=== PATIENT | female | born 1985 | race Caucasian/White ===

== ENCOUNTER 2018-01-19 10:58 | Emergency (ER) | payer MEDICAID ==
[2018-01-19 11:06] VITALS: BP 154/119
[2018-01-19] MEDS ORDERED: HYDROmorphone 0.5 MG/0.5 ML SYRINGE IVPUSH ONE ×2 (11:27→14:25)
[2018-01-19] MEDS ORDERED: Ondansetron 4 MG/2 ML SDV IVPUSH ONE ×2 (11:27→12:38)
[2018-01-19] MEDS ORDERED: Sodium Chloride 0.9% 1,000 ML IV SCH (11:30)
--- NOTE | 2018-01-19 11:39 | EDM.PDOC ---
ED HPI GENERAL MEDICAL PROBLEM - General Chief Complaint: Abdominal Pain Stated Complaint: ABDOMINAL PAIN/BACK PAIN/HARD TO BREATHE Time Seen by Provider: 01/19/18 11:17 Source of Information: Reports: Patient History Limitations: Reports: No Limitations - History of Present Illness INITIAL COMMENTS - FREE TEXT/NARRATIVE: Patient is a 32-year-old female who presents to the ED complaining of right upper quadrant abdominal pain that radiates into her back. This started last night abruptly with severe nausea. She has a poor appetite. States she's been drinking plenty of fluids with no issues. She has a history of gallbladder issues in the past diagnosed 2011. Ultrasound at that point did not reveal any gallstones present. HIDA scan was performed revealing a low ejection fraction. Due to patient's insurance they did not approve cholecystectomy. She's had no issues up until last night. States she did modify her diet for short period of time. As of recent she moved to [place] to take care of her grandmother. Patient ate pizza yesterday homemade with no concerns of ingestion of bad or questionable food. There has been no recent sick exposures. Denies being constipated. No fever, chest pain, shortness of breath, diarrhea, dysuria, or any additional complaints. Additional medical history includes hypertension take propranolol. Anxiety/depression/bipolar/PTSD taking Lipitor, clonazepam, lamotrigine. She is on estrogen replacement treatment. Patient did have a total hysterectomy. She smokes half pack per day. Alcohol use none. No recreational drug use. PCP is Roscoe Rai. Treatments IRRIGATION WORKER: Reports: Other (see below) Other Treatments IRRIGATION WORKER: pepto bismol Right Abdomen Pain Score (Numeric/FACES): 8 - Related Data Allergies Allergy/AdvReac Type Severity Reaction Status Date / Time morphine Allergy Cannot Verified 11/13/14 18:32 Remember Home Meds: Home Meds Drospirenone/Estradiol [Angeliq 0.5 mg-1 mg Tablet] 2 mg PO DAILY 06/26/14 [ History] lamoTRIgine [Lamictal] 25 mg PO DAILY 06/26/14 [History] ClonazePAM [KlonoPIN] 1 mg PO BID PRN 09/06/14 [History] Propranolol HCl 80 mg PO DAILY 11/13/14 [History] Acetaminophen/HYDROcodone [Anton 325-5 MG] 1 tab PO Q6H PRN #12 tablet 01/19/18 [Rx] Cholecalciferol (Vitamin D3) [Vitamin D3] 5,000 unit PO DAILY 01/19/18 [History] Cyanocobalamin (Vitamin B12) [Vitamin B12] 2,500 mcg PO DAILY 01/19/18 [History] Levofloxacin 750 mg PO QAM #6 tablet 01/19/18 [Rx] Ondansetron [Zofran ODT] 4 mg PO Q6H PRN #12 tab.dis 01/19/18 [Rx] buPROPion HCl [Wellbutrin Xl] 150 mg PO DAILY 01/19/18 [History] Past Medical History - Past Health History Medical/Surgical History: Denies Medical/Surgical History Cardiovascular History: Reports: Hypertension Neurological History: Reports: Migraines Psychiatric History: Reports: Anxiety, Bipolar, Depression, PTSD - Past Surgical History Female Surgical History: Reports: Hysterectomy Social & Family History - Tobacco Use Smoking Status *Q: Current Every Day Smoker Years of Tobacco use: 15 Packs/Tins Daily: 0.5 Used Tobacco, but Quit: Yes Month/Year Tobacco Last Used: Jun - Caffeine Use Caffeine Use: Reports: Tea - Alcohol Use Days Per Week of Alcohol Use: 0 - Recreational Drug Use Recreational Drug Use: No Drug Use in Last 12 Months: No ED ROS GENERAL - Review of Systems Review Of Systems: See Below Constitutional: Reports: Malaise, Decreased Appetite. Denies: Fever, Chills HEENT: Reports: No Symptoms Respiratory: Reports: No Symptoms Cardiovascular: Reports: No Symptoms GI/Abdominal: Reports: Abdominal Pain, Decreased Appetite, Nausea. Denies: Black Stool, Bloody Stool, Constipation, Diarrhea, Distension, Flatus, Hematemesis, Hematochezia, Vomiting : Reports: No Symptoms Musculoskeletal: Reports: Back Pain (low back) Skin: Reports: No Symptoms Neurological: Reports: No Symptoms ED EXAM, GI/ABD - Physical Exam Exam: See Below Exam Limited By: No Limitations General Appearance: Alert, WD/WN, No Apparent Distress Ears: Hearing Grossly Normal Nose: Normal Inspection Throat/Mouth: Normal Voice, No Airway Compromise Neck: Normal Inspection, Supple Respiratory/Chest: No Respiratory Distress, Lungs Clear, Normal Breath Sounds, No Accessory Muscle Use, Chest Non-Tender Cardiovascular: Normal Peripheral Pulses, Regular Rate, Rhythm GI/Abdominal Exam: Normal Bowel Sounds, Soft, No Organomegaly, No Distention, Other (Pain with palpation of the RUQ. +Pickard sign. -[place] pain. ) Back Exam: Normal Inspection. No: CVA Tenderness (L), CVA Tenderness (R) Extremities: Normal Inspection, Non-Tender, No Pedal Edema, Normal Capillary Refill Neurological: Alert, Oriented, CN II-XII Intact, Normal Cognition, No Motor/ Sensory Deficits Psychiatric: Normal Affect, Normal Mood Skin Exam: Warm, Dry, Intact, Normal Color, No Rash Course - Vital Signs Last Recorded V/S: Last Vital Signs Temp 98.2 F 01/19/18 11:04 Pulse 97 01/19/18 11:04 Resp 20 01/19/18 11:04 BP 154/119 H 01/19/18 11:04 Pulse Ox 100 01/19/18 11:04 - Orders/Labs/Meds Orders: Active Orders 24 hr Category Date Time Status EKG 12 Lead [EKG Documentation Completion] [RC] STAT Care 01/19/18 12:31 Active CULTURE URINE [RM] Stat Lab 01/19/18 11:45 Received DRUG SCREEN, URINE [URCHEM] Stat Lab 01/19/18 11:55 Ordered Labs: Laboratory Tests 01/19/18 01/19/18 01/19/18 Range/Units 11:15 11:15 11:55 WBC 9.83 (3.98-10.04) K/mm3 RBC 5.59 H (3.98-5.22) M/mm3 Hgb 14.6 (11.2-15.7) gm/L Hct 43.6 (34.1-44.9) % MCV 78.0 L (79.4-94.8) fl MCH 26.1 (25.6-32.2) pg MCHC 33.5 (32.2-35.5) g/dl RDW Std Deviation 40.6 (36.4-46.3) fL Plt Count 312 (182-369) K/mm3 MPV 10.1 (9.4-12.3) fl Neutrophils % (Manual) 85 H (40-60) % Band Neutrophils % 1 (0-10) % Lymphocytes % (Manual) 5 L (20-40) % Atypical Lymphs % 0 % Monocytes % (Manual) 6 (2-10) % Eosinophils % (Manual) 1 (0.7-5.8) % Basophils % (Manual) 0 L (0.1-1.2) Blast Cells % 2 Platelet Estimate Adequate RBC Morph Comment Normal Sodium 143 (136-145) mEq/L Potassium 3.9 (3.5-5.1) mEq/L Chloride 107 (98-107) mEq/L Carbon Dioxide 26 (21-32) mEq/L Anion Gap 13.9 (5-15) BUN 21 H (7-18) mg/dL Creatinine 1.1 H (0.55-1.02) mg/dL Est Cr Clr Drug Dosing 61.86 mL/min Estimated GFR (MDRD) 58 (>60) mL/min BUN/Creatinine Ratio 19.1 H (14-18) Glucose 131 H (74-106) mg/dL Calcium 9.3 (8.5-10.1) mg/dL Total Bilirubin 0.3 (0.2-1.0) mg/dL AST 21 (15-37) U/L ALT 30 (14-59) U/L Alkaline Phosphatase 105 (46-116) U/L C-Reactive Protein 1.1 H* (<1.0) mg/dL Total Protein 8.0 (6.4-8.2) g/dl Albumin 3.9 (3.4-5.0) g/dl Globulin 4.1 gm/dL Albumin/Globulin Ratio 1.0 (1-2) Lipase 91 (73-393) U/L Urine Color Yellow (Yellow) Urine Appearance Clear (Clear) Urine pH 6.0 (5.0-8.0) Ur Specific [place] 1.020 (1.005-1.030) Urine Protein 3+ H (Negative) Urine Glucose (UA) Negative (Negative) Urine Ketones Negative (Negative) Urine Occult Blood Trace-intact H (Negative) Urine Nitrite Negative (Negative) Urine Bilirubin Negative (Negative) Urine Urobilinogen 0.2 (0.2-1.0) Ur Leukocyte Esterase Negative (Negative) Urine RBC Not seen (0-5) /hpf Urine WBC 5-10 H (0-5) /hpf Ur Epithelial Cells 5-10 H (0-5) /hpf Urine Bacteria Rare (FEW) /hpf Urine Mucus Not seen (FEW) /hpf Urine HCG, Qual (NEGATIVE) Urine Opiates Screen (NEGATIVE) Ur Buprenorphine Scrn (NEGATIVE) Ur Oxycodone Screen (NEGATIVE) Urine Methadone Screen (NEGATIVE) Ur Propoxyphene Screen (NEGATIVE) Ur Barbiturates Screen (NEGATIVE) Ur Tricyclics Screen (NEGATIVE) Ur Phencyclidine Scrn (NEGATIVE) Ur Amphetamine Screen (NEGATIVE) U Methamphetamines Scrn (NEGATIVE) U Benzodiazepines Scrn (NEGATIVE) U Cocaine Metab Screen (NEGATIVE) U Marijuana (THC) Screen (NEGATIVE) 01/19/18 01/19/18 Range/Units 11:55 11:55 WBC (3.98-10.04) K/mm3 RBC (3.98-5.22) M/mm3 Hgb (11.2-15.7) gm/L Hct (34.1-44.9) % MCV (79.4-94.8) fl MCH (25.6-32.2) pg MCHC (32.2-35.5) g/dl RDW Std Deviation (36.4-46.3) fL Plt Count (182-369) K/mm3 MPV (9.4-12.3) fl Neutrophils % (Manual) (40-60) % Band Neutrophils % (0-10) % Lymphocytes % (Manual) (20-40) % Atypical Lymphs % % Monocytes % (Manual) (2-10) % Eosinophils % (Manual) (0.7-5.8) % Basophils % (Manual) (0.1-1.2) Blast Cells % Platelet Estimate RBC Morph Comment Sodium (136-145) mEq/L Potassium (3.5-5.1) mEq/L Chloride (98-107) mEq/L Carbon Dioxide (21-32) mEq/L Anion Gap (5-15) BUN (7-18) mg/dL Creatinine (0.55-1.02) mg/dL Est Cr Clr Drug Dosing mL/min Estimated GFR (MDRD) (>60) mL/min BUN/Creatinine Ratio (14-18) Glucose (74-106) mg/dL Calcium (8.5-10.1) mg/dL Total Bilirubin (0.2-1.0) mg/dL AST (15-37) U/L ALT (14-59) U/L Alkaline Phosphatase (46-116) U/L C-Reactive Protein (<1.0) mg/dL Total Protein (6.4-8.2) g/dl Albumin (3.4-5.0) g/dl Globulin gm/dL Albumin/Globulin Ratio (1-2) Lipase (73-393) U/L Urine Color (Yellow) Urine Appearance (Clear) Urine pH (5.0-8.0) Ur Specific [place] (1.005-1.030) Urine Protein (Negative) Urine Glucose (UA) (Negative) Urine Ketones (Negative) Urine Occult Blood (Negative) Urine Nitrite (Negative) Urine Bilirubin (Negative) Urine Urobilinogen (0.2-1.0) Ur Leukocyte Esterase (Negative) Urine RBC (0-5) /hpf Urine WBC (0-5) /hpf Ur Epithelial Cells (0-5) /hpf Urine Bacteria (FEW) /hpf Urine Mucus (FEW) /hpf Urine HCG, Qual Negative (NEGATIVE) Urine Opiates Screen Negative (NEGATIVE) Ur Buprenorphine Scrn Negative (NEGATIVE) Ur Oxycodone Screen Negative (NEGATIVE) Urine Methadone Screen Negative (NEGATIVE) Ur Propoxyphene Screen Negative (NEGATIVE) Ur Barbiturates Screen Negative (NEGATIVE) Ur Tricyclics Screen Negative (NEGATIVE) Ur Phencyclidine Scrn Negative (NEGATIVE) Ur Amphetamine Screen Negative (NEGATIVE) U Methamphetamines Scrn Negative (NEGATIVE) U Benzodiazepines Scrn Negative (NEGATIVE) U Cocaine Metab Screen Negative (NEGATIVE) U Marijuana (THC) Screen Presumptive positive H (NEGATIVE) Meds: Medications Discontinued Medications Generic Name Dose Route Start Last Admin Trade Name Freq PRN Reason Stop Dose Admin Diatrizoate Meglum/Diatrizoate Sod 90 ml 01/19/18 14:00 01/19/18 14:57 Gastrografin 37% PO 01/19/18 14:01 90 ml ONETIME ONE Administration Diphenhydramine HCl 50 mg 01/19/18 13:37 01/19/18 13:48 Benadryl IVPUSH 01/19/18 13:38 50 mg ONETIME ONE Administration Hydromorphone HCl 0.5 mg 01/19/18 11:27 01/19/18 11:52 Dilaudid IVPUSH 01/19/18 11:28 0.5 mg ONETIME ONE Administration Hydromorphone HCl 0.5 mg 01/19/18 14:25 01/19/18 14:34 Dilaudid IVPUSH 01/19/18 14:26 0.5 mg ONETIME ONE Administration Hyoscyamine 0.125 mg 01/19/18 12:39 01/19/18 12:49 Hyomax-Sl SL 01/19/18 12:40 0.125 mg ONETIME ONE Administration Sodium Chloride 1,000 mls @ 250 mls/hr 01/19/18 11:30 01/19/18 11:52 Normal Saline IV 250 mls/hr ASDIRECTED BLAINE Administration Iopamidol 100 ml 01/19/18 14:00 01/19/18 14:58 Isovue-370 (76%) IVPUSH 01/19/18 14:01 100 ml ONETIME ONE Administration Levofloxacin 750 mg 01/19/18 16:09 01/19/18 16:28 Levaquin PO 01/19/18 16:10 750 mg ONETIME ONE Administration Metoclopramide HCl 5 mg 01/19/18 14:25 01/19/18 14:32 Reglan IVPUSH 01/19/18 14:26 5 mg ONETIME ONE Administration Ondansetron HCl 4 mg 01/19/18 11:27 01/19/18 11:52 Zofran IVPUSH 01/19/18 11:28 4 mg ONETIME ONE Administration Ondansetron HCl 4 mg 01/19/18 12:38 01/19/18 12:50 Zofran IVPUSH 01/19/18 12:39 4 mg ONETIME ONE Administration Sodium Chloride 10 ml 01/19/18 14:00 01/19/18 14:58 Saline Flush FLUSH 01/19/18 14:01 10 ml ONETIME ONE Administration - Re-Assessments/Exams Free Text/Narrative Re-Assessment/Exam: IV established with Dilaudid 0.5 mg IVP, Zofran 4 mg IVP, and normal saline 250 mL/h. Initial labs and studies include: CBC, chem 14, CRP, urine drug tox, lipase, UA, , abdomen 2 view flat and upright, and ultrasound abdomen limited right upper quadrant pain. Reviewed HIDA scan obtained December 07, 2011 impression: Normal. Reviewed ultrasound abdomen obtained November 24, 2011 impression: Mild hepatomegaly with suggestion of mild fatty infiltration of the liver. Otherwise unremarkable. Reviewed ultrasound abd impression: Mild hepatomegaly a, small mid pole left renal cyst. No gallbladder outer malady. This was obtained January 10, 2006. 01/19/18 12:36 X-ray of the abdomen 2 view flat and upright: Nonspecific air in stool pattern. Patient does have a opacity to the right upper quadrant with unclear significance. She does have a history of hypercalcemia. Labs reviewed: WBC 9.83, Hgb 14.6, MCV low 78.0 (no documented workup), platelet count 312. Electrolytes WNL. BUN 21 and Cr 1.1. Glucose 131 ( nonfasting). CRP mildly elevated 1.1. Lipase 91. UA revealed 3+ protein, occult blood trace (no menses), urine WBC 5-10, and UR epithelia cells 5-10. Appears to be contaminated. Patient has no history of kidney stones. Pain is improved with sitting forward. Thus ordered EKG to evaluate for pericarditis. Urine drug tox positive for marijuana. Patient reported no recreational drug use. EKG: Sinus rhythm with q wave to lead III. No acute findings noted. 01/19/18 12:39 Per nursing staff patient complains of mild nausea and pain.Ordered levsin SL and zofran 4mg IVP. Ultrasound abdominal impression: Less than optimal study as described above. No discrete abnormality is otherwise seen. 1335 Discussed results of the labs and ultrasound with patient. She continues to have pain to the periumbilical region along with RUQ and back. She has no history of kidney stones. I will obtain CT abdomen/pelvis with IV and oral contrast. Patient requests benadryl with family history of allergic reaction to iv contrast. Ordered benadry 50mg PO. 01/19/18 14:26 Patient complaining of pain. Ordered dilaudid 0.5mg IVP and reglan 5mg IVP. 01/19/18 15:54 CT abdomen/pelvis Impression: Inflammatory change around both kidneys raising the possibility of pyelonephritis. Please correlate if this matches patients clinical symptoms. Incidental 2.3 cm cyst within the left kidney. No additional abnormality is identified on CT study of the abdomen and pelvis. 1555 Per nursing staff patient is up to the bathroom with no issues.Feeling much better after the reglan. 01/19/18 16:10 Discussed patient with suggested treating for Pyelnephritis. Ordered levofloxacin 750mg PO. Discharge home with instructions as documented. Departure - Departure Time of Disposition: 16:11 Disposition: Home, Self-Care 01 Condition: Good Clinical Impression: Pyelonephritis - Discharge Information Prescriptions: Acetaminophen/HYDROcodone [Anton 325-5 MG] 1 tab PO Q6H PRN #12 tablet PRN Reason: Pain (Severe 7-10) Levofloxacin 750 mg PO QAM #6 tablet Ondansetron [Zofran ODT] 4 mg PO Q6H PRN #12 tab.dis PRN Reason: Nausea/Vomiting Instructions: Pyelonephritis, Adult, Nausea and Vomiting, Adult, [id number], Pain Medicine Instructions, [id number] Referrals: Becki Rai SPLUNK DEVELOPER [Primary Care Provider] - Forms: ED Department Discharge Additional Instructions: Take the levofloxacin as prescribed. Push the fluids. Take zofran 4mg 1 tab every 6hrs as needed for nausea/vomiting. For pain can utilize aleve 1-2 tabs twice daily and tylenol 650mg every 6hrs. For severe pain take norco 1 tab every 6 hrs do not take tylenol and norco together. No driving today and or while taking the norco. Followup with PCP this coming Monday/Monday for reevaluation. Return to the E.D. if you develop any new or worsening symptoms as discussed. - My Orders Last 24 Hours: My Active Orders 01/19/18 11:45 CULTURE URINE [RM] Stat 01/19/18 11:55 DRUG SCREEN, URINE [URCHEM] Stat 01/19/18 12:31 EKG 12 Lead [EKG Documentation Completion] [RC] STAT - Assessment/Plan Last 24 Hours: My Active Orders 01/19/18 11:45 CULTURE URINE [RM] Stat 01/19/18 11:55 DRUG SCREEN, URINE [URCHEM] Stat 01/19/18 12:31 EKG 12 Lead [EKG Documentation Completion] [RC] STAT
[2018-01-19] MEDS ORDERED: Hyoscyamine 0.125 MG Tab.SL SL ONE (12:39)
--- NOTE | 2018-01-19 13:08 | CR ---
Abdomen: Supine and upright views of the abdomen were obtained. Comparison: No prior abdominal x-ray. Bowel gas pattern is felt to be within normal limits. Calcification is noted within the left side of the pelvis most likely representing phlebolith. No free air is seen. No discrete soft tissue abnormality is seen. Bony structures are within normal limits for the patient's age. Impression: 1. Nothing acute is seen on two-view abdominal x-ray. Diagnostic code #1
--- NOTE | 2018-01-19 13:08 | US ---
Limited abdominal ultrasound: Multiple real-time images of the upper right abdomen were obtained. Comparison: No previous abdominal ultrasound or CT exam. Technologist's note: Suboptimal images due to patient body habitus Liver not optimally seen. No discrete abnormality is noted within the liver. Gallbladder contains no gallstones. No gallbladder wall thickening or biliary duct dilatation is seen. Right kidney shows no hydronephrosis or mass. Right kidney measures 12.0 cm in size. Pancreas is obscured from bowel gas. Inferior vena cava not well seen, portal vein shows normal hepatopedal flow. Impression: 1. Less than optimal study as described above. No discrete abnormality is otherwise seen. Diagnostic code #1
[2018-01-19] MEDS ORDERED: diphenhydrAMINE 50 MG/ML SDV IVPUSH ONE (13:37)
[2018-01-19] MEDS ORDERED: Diatrizoate Meglumine/Diatrizoate Sodium 37% 120 ML Bottle PO ONE (14:00)
[2018-01-19] MEDS ORDERED: Iopamidol 755 Mg/ML 100 ML Bottle IVPUSH ONE (14:00)
[2018-01-19] MEDS ORDERED: Sodium Chloride 0.9% 10 ML Syringe FLUSH ONE (14:00)
[2018-01-19] MEDS ORDERED: Metoclopramide 10 MG/2 ML SDV IVPUSH ONE (14:25)
--- NOTE | 2018-01-19 15:21 | CT ---
CT abdomen and pelvis Technique: Multiple axial sections were obtained from the top of the liver inferiorly through the pubic symphysis. Intravenous and oral contrast was utilized. Delayed images were also obtained from above the kidneys inferiorly through the bladder. Comparison: Previous abdominal ultrasound performed on the same day (12:26 PM). Findings: Visualized lung bases shows nothing acute. Liver shows no focal parenchymal abnormality. Spleen appears within normal limits. Adrenal glands show no nodule. Pancreas is within normal limits. Gallbladder contains no calcified gallstones. Cyst is identified within the left kidney measuring 2.3 cm. Inflammatory changes are seen around both kidneys, worse on the right side raising the possibility of pyelonephritis. Contrast excretion is seen into both ureters without evidence of ureteral obstruction. Contrast noted on delayed images within the bladder. Aorta shows no aneurysmal dilatation. No retroperitoneal adenopathy is seen. No pelvic mass or adenopathy is identified. Appendix appears to be present and appears normal in size. Bone window settings were reviewed which appears within normal limits for the patient's age. No free fluid is seen. No bowel dilatation is seen. Impression: 1. Inflammatory change around both kidneys raising the possibility of pyelonephritis. Please correlate if this matches patient's clinical symptoms. 2. Incidental 2.3 cm cyst within the left kidney. 3. No additional abnormality is identified on CT study of the abdomen and pelvis. Diagnostic code #3
[2018-01-19] MEDS ORDERED: Levofloxacin 750 MG Tab PO ONE (16:09)
== END 2018-01-19 16:33 | disposition home or self-care (01) ==
LOC: JD.ED 10:58
DX: N12 Tubulo-interstitial nephritis, not specified as acute or chronic (principal); N28.1 Cyst of kidney, acquired; I10 Essential (primary) hypertension; F41.9 Anxiety disorder, unspecified; F32.9 Major depressive disorder, single episode, unspecified; F17.210 Nicotine dependence, cigarettes, uncomplicated; Z88.5 Allergy status to narcotic agent; Z79.899 Other long term (current) drug therapy
CPT/HCPCS: 36415; 74019; 74177; 76705; 80053; 80306; 81001; 81025; 83690; 85025; 86140; 87086; 93005; 96361; 96374; 96375; 96376; 99285; A9270; J1170; J1200; J2405; J2765; J7040; J7050; Q9963; Q9967; 99284

== ENCOUNTER 2020-09-30 13:54 | Emergency (ER) | payer BC, MEDICAID ==
[2020-09-30] MEDS ORDERED: Sodium Chloride 0.9% 10 ML Syringe FLUSH PRN (14:46)
[2020-09-30] MEDS ORDERED: Sodium Chloride 0.9% 1,000 ML IV STA (14:46)
[2020-09-30] MEDS ORDERED: diphenhydrAMINE 50 MG/ML SDV IVPUSH ONE (14:48)
[2020-09-30] MEDS ORDERED: Ketorolac 30 MG/ML SDV IVPUSH ONE (14:48)
[2020-09-30] MEDS ORDERED: Metoclopramide 10 MG/2 ML SDV IVPUSH ONE (14:48)
--- NOTE | 2020-09-30 15:37 | EDM.PDOC ---
ED HPI GENERAL MEDICAL PROBLEM - General Chief Complaint: Gastrointestinal Problem Stated Complaint: MIGRAINE/DEHYDRATION Time Seen by Provider: 09/30/20 14:22 Source of Information: Reports: Patient History Limitations: Reports: No Limitations - History of Present Illness INITIAL COMMENTS - FREE TEXT/NARRATIVE: The patient presents with a migraine. This has been going on for a couple of days. She had a gastric sleeve placed a few months ago. She lost 60 pounds and is off some of her medications for hypertension and hypercholesterolemia. She has not been able to drink enough water at her new job at [employer] and that has lead to her headache. She has no numbness or weakness. She has no fever, chills, cough, congestion, runny nose chest pain, shortness of breath, nausea or vomiting. Onset: Gradual Duration: Day(s): Location: Reports: Head Quality: Reports: Ache Severity: Severe Improves with: Reports: None Worsens with: Reports: None Associated Symptoms: Reports: Headaches. Denies: Chest Pain, Cough, Fever/Chills, Nausea/Vomiting, Shortness of Breath Headache Pain Score (Numeric/FACES): 5 - Related Data Allergies Allergy/AdvReac Type Severity Reaction Status Date / Time morphine Allergy Cannot Verified 09/30/20 14:20 Remember ondansetron [From Zofran] AdvReac Headache Verified 09/30/20 16:16 Home Meds: Home Meds lamoTRIgine [Lamictal] 200 mg PO BID 06/26/14 [History] Cholecalciferol (Vitamin D3) [Vitamin D3] 5,000 unit PO DAILY 01/19/18 [History] Cyanocobalamin (Vitamin B12) [Vitamin B12] 2,500 mcg PO DAILY 01/19/18 [History] Biotin 5,000 mcg PO DAILY 09/30/20 [History] Calcium Citrate 200 mg PO DAILY 09/30/20 [History] FLUoxetine [PROzac] 80 mg PO DAILY 09/30/20 [History] LORazepam [Ativan] 1 tab PO ASDIRECTED PRN 09/30/20 [History] Pedi Multivit No.7/Folic Acid [Flintstones Tab] 1 tab PO DAILY 09/30/20 [History] Rizatriptan Benzoate [Rizatriptan] 10 mg SL DAILY 09/30/20 [History] Past Medical History - Past Health History Medical/Surgical History: Denies Medical/Surgical History HEENT History: Reports: Impaired Vision Cardiovascular History: Reports: Hypertension Respiratory History: Reports: Sleep Apnea Other Respiratory History: off CPAP since surgery Gastrointestinal History: Reports: Other (See Below) Other Gastrointestinal History: Gastric Sleeve 06/09/20 Genitourinary History: Reports: UTI, Recurrent [employer]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 Musculoskeletal History: Reports: None Neurological History: Reports: Migraines Psychiatric History: Reports: Anxiety, Bipolar, Depression, PTSD Endocrine/Metabolic History: Reports: Obesity/BMI 30+ Hematologic History: Reports: None Immunologic History: Reports: None Oncologic (Cancer) History: Reports: None Dermatologic History: Reports: None - Infectious Disease History Infectious Disease History: Reports: Chicken Pox - Past Surgical History Head Surgeries/Procedures: Reports: None HEENT Surgical History: Reports: Oral Surgery GI Surgical History: Reports: Bariatric Procedure Other GI Surgeries/Procedures: sleeve Female Surgical History: Reports: Hysterectomy Musculoskeletal Surgical History: Reports: None Social & Family History - Family History Family Medical History: No Pertinent Family History Cardiac: Reports: Heart Failure Endocrine/Metabolic: Reports: Diabetes, type II Hematologic: Reports: Anemia - Tobacco Use Tobacco Use Status *Q: Former Tobacco User Used Tobacco, but Quit: Yes Month/Year Tobacco Last Used: 10/2009 - Caffeine Use Caffeine Use: Reports: None - Recreational Drug Use Recreational Drug Use: No ED ROS GENERAL - Review of Systems Review Of Systems: See Below Constitutional: Reports: No Symptoms HEENT: Reports: No Symptoms Respiratory: Reports: No Symptoms Cardiovascular: Reports: No Symptoms Endocrine: Reports: No Symptoms GI/Abdominal: Reports: No Symptoms : Reports: No Symptoms Musculoskeletal: Reports: No Symptoms Neurological: Reports: Headache ED EXAM, GI/ABD - Physical Exam Exam: See Below Exam Limited By: No Limitations General Appearance: Alert, No Apparent Distress Ears: Normal External Exam Nose: Normal Inspection Head: Atraumatic, Normocephalic Neck: Normal Inspection Respiratory/Chest: No Respiratory Distress, Lungs Clear, Normal Breath Sounds Cardiovascular: Regular Rate, Rhythm, No Edema, No Murmur GI/Abdominal Exam: Soft, Non-Tender, No Organomegaly, No Mass Extremities: Normal Inspection Course - Vital Signs Last Recorded V/S: Last Vital Signs Temp 97.3 F 09/30/20 14:32 Pulse 70 09/30/20 14:32 Resp 18 09/30/20 14:32 BP 122/92 H 09/30/20 14:32 Pulse Ox 97 09/30/20 14:32 - Orders/Labs/Meds Orders: Active Orders 24 hr Category Date Time Status Peripheral IV Care [RC] . DIRECTED Care 09/30/20 14:47 Active Sodium Chloride 0.9% [Saline Flush] Med 09/30/20 14:46 Active 10 ml FLUSH ASDIRECTED PRN Peripheral IV Insertion Adult [OM.PC] Stat Oth 09/30/20 14:46 Ordered Medication Orders Sodium Chloride (Saline Flush) 10 ml FLUSH ASDIRECTED PRN PRN Reason: Keep Vein Open Last Admin: 09/30/20 15:10 Dose: 10 ml Documented by: MODE Labs: Laboratory Tests 09/30/20 09/30/20 Range/Units 15:07 15:07 WBC 5.67 (3.98-10.04) K/mm3 RBC 5.25 H (3.98-5.22) M/mm3 Hgb 14.3 (11.2-15.7) gm/dl Hct 44.3 (34.1-44.9) % MCV 84.4 D (79.4-94.8) fl MCH 27.2 (25.6-32.2) pg MCHC 32.3 (32.2-35.5) g/dl RDW Std Deviation 45.4 (36.4-46.3) fL Plt Count 344 (182-369) K/mm3 MPV 9.5 (9.4-12.3) fl Neut % (Auto) 56.6 (34.0-71.1) % Lymph % (Auto) 31.0 (19.3-51.7) % Calvert % (Auto) 10.6 (4.7-12.5) % Eos % (Auto) 1.4 (0.7-5.8) Baso % (Auto) 0.4 (0.1-1.2) % Neut # (Auto) 3.21 (1.56-6.13) K/mm3 Lymph # (Auto) 1.76 (1.18-3.74) K/mm3 Calvert # (Auto) 0.60 H (0.24-0.36) K/mm3 Eos # (Auto) 0.08 (0.04-0.36) K/mm3 Baso # (Auto) 0.02 (0.01-0.08) K/mm3 Sodium 137 (136-145) mEq/L Potassium 3.9 (3.5-5.1) mEq/L Chloride 104 (98-107) mEq/L Carbon Dioxide 27 (21-32) mEq/L Anion Gap 9.9 (5-15) BUN 14 (7-18) mg/dL Creatinine 0.7 (0.55-1.02) mg/dL Est Cr Clr Drug Dosing 98.71 mL/min Estimated GFR (MDRD) > 60 (>60) mL/min BUN/Creatinine Ratio 20.0 H (14-18) Glucose 84 (74-106) mg/dL Calcium 8.8 (8.5-10.1) mg/dL Magnesium 2.0 (1.8-2.4) mg/dl Total Bilirubin 0.3 (0.2-1.0) mg/dL AST 14 L (15-37) U/L ALT 28 (14-59) U/L Alkaline Phosphatase 86 (46-116) U/L Total Protein 7.2 (6.4-8.2) g/dl Albumin 3.4 (3.4-5.0) g/dl Globulin 3.8 gm/dL Albumin/Globulin Ratio 0.9 L (1-2) Meds: Medications Generic Name Dose Route Start Last Admin Trade Name Freq PRN Reason Stop Dose Admin Sodium Chloride 10 ml 09/30/20 14:46 09/30/20 15:10 Saline Flush FLUSH 10 ml ASDIRECTED PRN Administration Keep Vein Open Discontinued Medications Generic Name Dose Route Start Last Admin Trade Name Freq PRN Reason Stop Dose Admin Diphenhydramine HCl 50 mg 09/30/20 14:48 09/30/20 15:18 Benadryl IVPUSH 09/30/20 14:49 50 mg ONETIME ONE Administration Sodium Chloride 1,000 mls @ 1,000 mls/hr 09/30/20 14:46 09/30/20 15:17 Normal Saline IV 09/30/20 15:45 1,000 mls/hr .BOLUS STA Administration Sodium Chloride 1,000 mls @ 1,000 mls/hr 09/30/20 15:38 Normal Saline IV 09/30/20 16:37 ONETIME ONE Ketorolac Tromethamine 30 mg 09/30/20 14:48 09/30/20 15:18 Toradol IVPUSH 09/30/20 14:49 30 mg ONETIME ONE Administration Metoclopramide HCl 10 mg 09/30/20 14:48 09/30/20 15:18 Reglan IVPUSH 09/30/20 14:49 10 mg ONETIME ONE Administration - Re-Assessments/Exams Free Text/Narrative Re-Assessment/Exam: 09/30/20 15:37 I ordered an IV NS 1L bolus, reglan 10mg IV, toradol 30mg IV, benadryl 50mg IV and labs. 09/30/20 16:17 Her CBC and CMP look good. She feels much better. I will discharge her home. Departure - Departure Time of Disposition: 16:20 Disposition: Home, Self-Care 01 Condition: Good Clinical Impression: Migraine, Dehydration - Discharge Information *PRESCRIPTION DRUG MONITORING PROGRAM REVIEWED*: Not Applicable *COPY OF PRESCRIPTION DRUG MONITORING REPORT IN PATIENT RACHAEL: Not Applicable Referrals: PCP,None [Primary Care Provider] - Forms: ED Department Discharge Additional Instructions: Try to drink more water. Please return if you are worse. Sepsis Event Note (ED) - Evaluation Sepsis Screening Result: No Definite Risk - Focused Exam Vital Signs: Vital Signs Temp Pulse Resp BP Pulse Ox 09/30/20 14:32 97.3 F 70 18 122/92 H 97 - My Orders Last 24 Hours: My Active Orders 09/30/20 14:46 Sodium Chloride 0.9% [Saline Flush] 10 ml FLUSH ASDIRECTED PRN Peripheral IV Insertion Adult [OM.PC] Stat 09/30/20 14:47 Peripheral IV Care [RC] . DIRECTED - Assessment/Plan Last 24 Hours: My Active Orders 09/30/20 14:46 Sodium Chloride 0.9% [Saline Flush] 10 ml FLUSH ASDIRECTED PRN Peripheral IV Insertion Adult [OM.PC] Stat 09/30/20 14:47 Peripheral IV Care [RC] . DIRECTED
[2020-09-30] MEDS ORDERED: Sodium Chloride 0.9% 1,000 ML IV ONE (15:38)
[2020-09-30 16:21] VITALS: BP 118/80; PULSE 76
== END 2020-09-30 16:32 | disposition home or self-care (01) ==
LOC: JD.ED 13:54
DX: G43.909 Migraine, unspecified, not intractable, without status migrainosus (principal); E86.0 Dehydration; I10 Essential (primary) hypertension; F31.9 Bipolar disorder, unspecified; F41.9 Anxiety disorder, unspecified; E66.9 Obesity, unspecified; Z68.39 Body mass index [BMI] 39.0-39.9, adult; Z88.5 Allergy status to narcotic agent; Z88.8 Allergy status to other drugs, medicaments and biological substances; Z87.891 Personal history of nicotine dependence; Z79.899 Other long term (current) drug therapy
CPT/HCPCS: 36415; 80053; 83735; 85025; 96374; 96375; 99283; J1200; J1885; J2765; J7030; 99284

== ENCOUNTER 2021-06-02 09:33 | Emergency (ER) | payer BC, OTHER ==
[2021-06-02 09:46] VITALS: BP 141/99; PULSE 80
[2021-06-02] MEDS ORDERED: Sodium Chloride 0.9% 1,000 ML IV ONE (09:58)
[2021-06-02] MEDS ORDERED: Sodium Chloride 0.9% 10 ML Syringe FLUSH PRN (09:58)
[2021-06-02] MEDS ORDERED: Ketorolac 30 MG/ML SDV IVPUSH ONE (09:58)
[2021-06-02] MEDS ORDERED: Famotidine 20 MG/2 ML SDV IVPUSH ONE (09:59)
[2021-06-02] MEDS ORDERED: Metoclopramide 10 MG/2 ML SDV IVPUSH ONE (09:59)
[2021-06-02] MEDS ORDERED: diphenhydrAMINE 50 MG/ML SDV IVPUSH ONE (09:59)
--- NOTE | 2021-06-02 10:10 | EDM.PDOC ---
ED HPI GENERAL MEDICAL PROBLEM - General Chief Complaint: Headache Stated Complaint: HEADACHE Time Seen by Provider: 06/02/21 09:48 Source of Information: Reports: Patient History Limitations: Reports: No Limitations - History of Present Illness INITIAL COMMENTS - FREE TEXT/NARRATIVE: The patient presents with a headache. This started on Monday. She has pain in the back of her head. She has nausea and photophobia. She has a history of migraines. They have been better since she had her gastric sleeve done about a year ago. She lost 115 pounds. She has no numbness or weakness. She has no fever, chills, cough, chest pain, shortness of breath, or vomiting. Onset: Gradual Duration: Day(s): Location: Reports: Head Quality: Reports: Ache Severity: Severe Improves with: Reports: None Worsens with: Reports: None Associated Symptoms: Reports: Headaches, Nausea/Vomiting, Shortness of Breath. Denies: Chest Pain, Cough, Fever/Chills Headache Pain Score (Numeric/FACES): 6 - Related Data Allergies Allergy/AdvReac Type Severity Reaction Status Date / Time iodine Allergy Severe Hives Verified 06/02/21 09:45 morphine AdvReac Severe Headache Verified 06/02/21 09:45 ondansetron [From Zofran] AdvReac Severe Stomach Verified 06/02/21 09:45 Upset Home Meds: Home Meds lamoTRIgine [Lamictal] 200 mg PO BID 06/26/14 [History] Cholecalciferol (Vitamin D3) [Vitamin D3] 5,000 unit PO DAILY 01/19/18 [History] Cyanocobalamin (Vitamin B12) [Vitamin B12] 2,500 mcg PO DAILY 01/19/18 [History] Calcium Citrate 500 mg PO DAILY 09/30/20 [History] FLUoxetine [PROzac] 80 mg PO DAILY 09/30/20 [History] LORazepam [Ativan] 1 tab PO ASDIRECTED PRN 09/30/20 [History] Pedi Multivit No.7/Folic Acid [Flintstones Tab] 1 tab PO DAILY 09/30/20 [History] Rizatriptan Benzoate [Rizatriptan] 10 mg SL DAILY 09/30/20 [History] Magnesium 250 mg PO BEDTIME 06/02/21 [History] atorvaSTATin [Lipitor] 10 mg PO BEDTIME 06/02/21 [History] Past Medical History - Past Health History Medical/Surgical History: Denies Medical/Surgical History HEENT History: Reports: Impaired Vision Cardiovascular History: Reports: Hypertension Respiratory History: Reports: Sleep Apnea Other Respiratory History: off CPAP since surgery Gastrointestinal History: Reports: Other (See Below) Other Gastrointestinal History: Gastric Sleeve 06/09/20 Genitourinary History: Reports: UTI, 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 Musculoskeletal History: Reports: None Neurological History: Reports: Migraines Psychiatric History: Reports: Anxiety, Bipolar, Depression, PTSD Endocrine/Metabolic History: Reports: Obesity/BMI 30+ Hematologic History: Reports: None Immunologic History: Reports: None Oncologic (Cancer) History: Reports: None Dermatologic History: Reports: None - Infectious Disease History Infectious Disease History: Reports: Chicken Pox - Past Surgical History HEENT Surgical History: Reports: Oral Surgery GI Surgical History: Reports: Bariatric Procedure Other GI Surgeries/Procedures: sleeve Female Surgical History: Reports: Hysterectomy Social & Family History - Family History Family Medical History: No Pertinent Family History Cardiac: Reports: Heart Failure Endocrine/Metabolic: Reports: Diabetes, type II Hematologic: Reports: Anemia - Tobacco Use Tobacco Use Status *Q: Current Every Day Tobacco User Years of Tobacco use: 15 Packs/Tins Daily: 0.2 - Caffeine Use Caffeine Use: Reports: Coffee, Tea - Recreational Drug Use Recreational Drug Use: No ED ROS GENERAL - Review of Systems Review Of Systems: See Below Constitutional: Reports: No Symptoms HEENT: Reports: No Symptoms Respiratory: Reports: No Symptoms Cardiovascular: Reports: No Symptoms Endocrine: Reports: No Symptoms GI/Abdominal: Reports: Nausea. Denies: Abdominal Pain, Vomiting Neurological: Reports: Headache - Physical Exam Exam: See Below Exam Limited By: No Limitations General Appearance: Alert, No Apparent Distress Ears: Normal External Exam Nose: Normal Inspection Head Exam: Atraumatic, Normocephalic Neck: Normal Inspection, Supple, Non-Tender Respiratory/Chest: No Respiratory Distress, Lungs Clear, Normal Breath Sounds Cardiovascular: Regular Rate, Rhythm, No Edema, No Murmur GI/Abdominal: Soft, Non-Tender, No Organomegaly, No Mass Neuro Exam (Abbreviated): Alert, Oriented, No Motor/Sensory Deficits Course - Vital Signs Last Recorded V/S: Last Vital Signs Temp 96.9 F 06/02/21 09:41 Pulse 80 06/02/21 09:41 Resp 16 06/02/21 09:41 BP 141/99 H 06/02/21 09:41 Pulse Ox 97 06/02/21 09:41 - Orders/Labs/Meds Orders: Active Orders 24 hr Category Date Time Status Peripheral IV Care [RC] . DIRECTED Care 06/02/21 09:58 Active Sodium Chloride 0.9% [Saline Flush] Med 06/02/21 09:58 Active 10 ml FLUSH ASDIRECTED PRN Peripheral IV Insertion Adult [OM.PC] Routine Oth 06/02/21 09:58 Ordered Medication Orders Sodium Chloride (Sodium Chloride 0.9% 10 Ml Syringe) 10 ml FLUSH ASDIRECTED PRN PRN Reason: Keep Vein Open Last Admin: 06/02/21 10:07 Dose: 10 ml Documented by: JUANA Meds: Medications Generic Name Dose Route Start Last Admin Trade Name Freq PRN Reason Stop Dose Admin Sodium Chloride 10 ml 06/02/21 09:58 06/02/21 10:07 Sodium Chloride 0.9% 10 Ml Syringe FLUSH 10 ml ASDIRECTED PRN Administration Keep Vein Open Discontinued Medications Generic Name Dose Route Start Last Admin Trade Name Freq PRN Reason Stop Dose Admin Diphenhydramine HCl 50 mg 06/02/21 09:59 06/02/21 10:13 Diphenhydramine 50 Mg/Ml Sdv IVPUSH 06/02/21 10:00 50 mg ONETIME ONE Administration Famotidine 20 mg 06/02/21 09:59 06/02/21 10:10 Famotidine 20 Mg/2 Ml Sdv IVPUSH 06/02/21 10:00 20 mg ONETIME ONE Administration Sodium Chloride 1,000 mls @ 1,000 mls/hr 06/02/21 09:58 06/02/21 10:07 Normal Saline IV 06/02/21 10:57 1,000 mls/hr ONETIME ONE Administration Ketorolac Tromethamine 30 mg 06/02/21 09:58 06/02/21 10:07 Ketorolac 30 Mg/Ml Sdv IVPUSH 06/02/21 09:59 30 mg ONETIME ONE Administration Metoclopramide HCl 10 mg 06/02/21 09:59 06/02/21 10:08 Metoclopramide 10 Mg/2 Ml Sdv IVPUSH 06/02/21 10:00 10 mg ONETIME ONE Administration - Re-Assessments/Exams Free Text/Narrative Re-Assessment/Exam: 06/02/21 10:26 I ordered an IV NS 1L bolus, reglan 10mg IV, benadryl 50mg IV, pepcid 20mg IV, and toradol 30mg IV. 06/02/21 11:29 She feels better. I will discharge her home. Departure - Departure Time of Disposition: 11:35 Disposition: Home, Self-Care 01 Condition: Good Clinical Impression: Migraine - Discharge Information *PRESCRIPTION DRUG MONITORING PROGRAM REVIEWED*: Not Applicable *COPY OF PRESCRIPTION DRUG MONITORING REPORT IN PATIENT RACHAEL: Not Applicable Referrals: Huma Mulligan NP [Primary Care Provider] - 1 Week Forms: ED Department Discharge, ED Return to Work/School Form Additional Instructions: Go home and rest. Please return if you are worse. Sepsis Event Note (ED) - Evaluation Sepsis Screening Result: No Definite Risk - Focused Exam Vital Signs: Vital Signs Temp Pulse Resp BP Pulse Ox 06/02/21 09:41 96.9 F 80 16 141/99 H 97 - My Orders Last 24 Hours: My Active Orders 06/02/21 09:58 Peripheral IV Care [RC] . DIRECTED Sodium Chloride 0.9% [Saline Flush] 10 ml FLUSH ASDIRECTED PRN Peripheral IV Insertion Adult [OM.PC] Routine - Assessment/Plan Last 24 Hours: My Active Orders 06/02/21 09:58 Peripheral IV Care [RC] . DIRECTED Sodium Chloride 0.9% [Saline Flush] 10 ml FLUSH ASDIRECTED PRN Peripheral IV Insertion Adult [OM.PC] Routine
== END 2021-06-02 11:35 | disposition home or self-care (01) ==
LOC: JD.ED 09:33
DX: G43.909 Migraine, unspecified, not intractable, without status migrainosus (principal); I10 Essential (primary) hypertension; E66.9 Obesity, unspecified; Z91.041 Radiographic dye allergy status; Z88.6 Allergy status to analgesic agent; Z88.8 Allergy status to other drugs, medicaments and biological substances; Z68.31 Body mass index [BMI] 31.0-31.9, adult; Z72.0 Tobacco use; Z79.899 Other long term (current) drug therapy
CPT/HCPCS: 96374; 96375; 99283; J1200; J1885; J2765; J3490; J7030

== ENCOUNTER 2021-06-15 18:14 | Emergency (ER) | payer OTHER ==
[2021-06-15 19:04] VITALS: BP 137/99; PULSE 86
--- NOTE | 2021-06-15 20:05 | EDM.PDOC ---
ED HPI GENERAL MEDICAL PROBLEM - General Chief Complaint: Abdominal Pain Stated Complaint: SOB CHEST PAIN Time Seen by Provider: 06/15/21 19:31 Source of Information: Reports: Patient History Limitations: Reports: No Limitations - History of Present Illness INITIAL COMMENTS - FREE TEXT/NARRATIVE: 36-year-old female presents the emergency department with complaints of upper abdominal discomfort radiating like a band around her back. Patient states she does have a history of gastric sleeve and was told that she may have gallbladder issues after having this procedure. She states she did have some issues prior to the procedure but has been doing fine. However over the course the past 2 days she states she has developed right upper quadrant abdominal pain which radiates around her abdomen and around her back. She states it feels like there is a belt going around her upper abdomen. She states that nothing makes the pain worse or better however it has become more severe throughout the day. She has not been able to eat or drink much of anything due to the discomfort. She denies any fever, chills, nausea, vomiting or diarrhea. She denies headache, sore throat, cough or shortness of breath or any other respiratory symptoms. She states she has otherwise been fairly healthy. Treatments PETROLEUM SAMPLER: Reports: Other (see below) Other Treatments PETROLEUM SAMPLER: pepcid and pepto Right Upper Abdomen Pain Score (Numeric/FACES): 6 - Related Data Allergies Allergy/AdvReac Type Severity Reaction Status Date / Time iodine Allergy Severe Hives Verified 06/15/21 18:58 morphine AdvReac Severe Headache Verified 06/15/21 18:58 ondansetron [From Zofran] AdvReac Severe Stomach Verified 06/15/21 18:58 Upset Home Meds: Home Meds lamoTRIgine [Lamictal] 200 mg PO BID 06/26/14 [History] Cholecalciferol (Vitamin D3) [Vitamin D3] 5,000 unit PO DAILY 01/19/18 [History] Cyanocobalamin (Vitamin B12) [Vitamin B12] 2,500 mcg PO DAILY 01/19/18 [History] Calcium Citrate 500 mg PO DAILY 09/30/20 [History] FLUoxetine [PROzac] 80 mg PO DAILY 09/30/20 [History] Pedi Multivit No.7/Folic Acid [Flintstones Tab] 1 tab PO DAILY 09/30/20 [History] Rizatriptan Benzoate [Rizatriptan] 10 mg SL DAILY 09/30/20 [History] Magnesium 250 mg PO BEDTIME 06/02/21 [History] atorvaSTATin [Lipitor] 10 mg PO BEDTIME 06/02/21 [History] Past Medical History - Past Health History Medical/Surgical History: Denies Medical/Surgical History HEENT History: Reports: Impaired Vision Cardiovascular History: Reports: Hypertension Respiratory History: Reports: Sleep Apnea Other Respiratory History: off CPAP since surgery Gastrointestinal History: Reports: Other (See Below) Other Gastrointestinal History: Gastric Sleeve 06/09/20 Genitourinary History: Reports: UTI, Recurrent 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: 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 Musculoskeletal History: Reports: None Neurological History: Reports: Migraines Psychiatric History: Reports: Anxiety, Bipolar, Depression, PTSD Endocrine/Metabolic History: Reports: Obesity/BMI 30+ Hematologic History: Reports: None Immunologic History: Reports: None Oncologic (Cancer) History: Reports: None Dermatologic History: Reports: None - Infectious Disease History Infectious Disease History: Reports: Chicken Pox - Past Surgical History Head Surgeries/Procedures: Reports: None HEENT Surgical History: Reports: Oral Surgery GI Surgical History: Reports: Bariatric Procedure Other GI Surgeries/Procedures: sleeve Female Surgical History: Reports: Hysterectomy Musculoskeletal Surgical History: Reports: None Social & Family History - Family History Family Medical History: No Pertinent Family History Cardiac: Reports: Heart Failure Endocrine/Metabolic: Reports: Diabetes, type II Hematologic: Reports: Anemia - Tobacco Use Tobacco Use Status *Q: Current Some Day Tobacco User Years of Tobacco use: 15 Packs/Tins Daily: 0.5 - Caffeine Use Caffeine Use: Reports: Tea - Recreational Drug Use Recreational Drug Use: No ED ROS GENERAL - Review of Systems Review Of Systems: Comprehensive ROS is negative, except as noted in HPI. ED EXAM, GI/ABD - Physical Exam Exam: See Below Exam Limited By: No Limitations General Appearance: Alert, WD/WN, Mild Distress Ears: Normal External Exam, Hearing Grossly Normal Nose: Normal Inspection Throat/Mouth: Normal Inspection, Normal Lips, Normal Voice, No Airway Compromise Head: Atraumatic, Normocephalic Neck: Normal Inspection, Supple Respiratory/Chest: No Respiratory Distress, Lungs Clear, Normal Breath Sounds, No Accessory Muscle Use, Chest Non-Tender Cardiovascular: Normal Peripheral Pulses, Regular Rate, Rhythm, No Edema, No Murmur GI/Abdominal Exam: Normal Bowel Sounds, Soft, No Distention, Tender (Right and left upper quadrants) (Female) Exam: Deferred Rectal (Female) Exam: Deferred Back Exam: Normal Inspection Extremities: Normal Inspection Neurological: Alert, Oriented, Normal Cognition Psychiatric: Normal Affect Skin Exam: Warm, Dry, Intact, Normal Color, No Rash Lymphatic: No Adenopathy #1 Interpretation EKG Date: 06/15/21 Time: 19:30 Rhythm: NSR Rate (Beats/Min): 79 [place]: Normal P-Wave: Present QRS: LBBB ST-T: Normal QT: Normal Comparison: NA - No Prior EKG EKG Interpretation Comments: Per Dr. Esparza interpretation; sinus rhythm at 79 bpm; left bundle branch block Course - Vital Signs Text/Narrative:: As stated above patient presents with upper abdominal discomfort primarily in the right upper quadrant however however it does radiate across the upper abdomen. Patient's physical exam is essentially unremarkable however she does have tenderness noted at McBurney's point. She also states that pain radiates around her back. She denies any vomiting or diarrhea. She denies any fever chills or urinary symptoms. I have ordered labs to include a CBC, CMP, magnesium, C-reactive protein, lipase and GGT. We will also obtain an ultrasound of the right upper quadrant. Last Recorded V/S: Last Vital Signs Temp 97.2 F 06/15/21 19:01 Pulse 86 06/15/21 19:01 Resp 18 06/15/21 19:01 BP 137/99 H 06/15/21 19:01 Pulse Ox 99 06/15/21 19:01 - Orders/Labs/Meds Orders: Active Orders 24 hr Category Date Time Status Sodium Chloride 0.9% [Normal Saline] 1,000 ml Med 06/15/21 20:52 Active IV ONETIME Medication Orders Sodium Chloride (Normal Saline) 1,000 mls @ 999 mls/hr IV ONETIME ONE Stop: 06/15/21 21:52 Last Admin: 06/15/21 21:28 Dose: 999 mls/hr Documented by: BARBARA Labs: Laboratory Tests 06/15/21 06/15/21 06/15/21 Range/Units 19:35 19:35 19:35 WBC 5.13 (3.98-10.04) K/mm3 RBC 5.27 H (3.98-5.22) M/mm3 Hgb 15.1 (11.2-15.7) gm/dl Hct 45.4 H (34.1-44.9) % MCV 86.1 (79.4-94.8) fl MCH 28.7 (25.6-32.2) pg MCHC 33.3 (32.2-35.5) g/dl RDW Std Deviation 39.8 (36.4-46.3) fL Plt Count 354 (182-369) K/mm3 MPV 9.1 L (9.4-12.3) fl Neut % (Auto) 70.3 (34.0-71.1) % Lymph % (Auto) 20.1 (19.3-51.7) % [place] % (Auto) 8.0 (4.7-12.5) % Eos % (Auto) 1.0 (0.7-5.8) Baso % (Auto) 0.4 (0.1-1.2) % Neut # (Auto) 3.61 (1.56-6.13) K/mm3 Lymph # (Auto) 1.03 L (1.18-3.74) K/mm3 [place] # (Auto) 0.41 H (0.24-0.36) K/mm3 Eos # (Auto) 0.05 (0.04-0.36) K/mm3 Baso # (Auto) 0.02 (0.01-0.08) K/mm3 Sodium 138 (136-145) mEq/L Potassium 4.0 (3.5-5.1) mEq/L Chloride 103 (98-107) mEq/L Carbon Dioxide 28 (21-32) mEq/L Anion Gap 11.0 (5-15) BUN 13 (7-18) mg/dL Creatinine 0.8 (0.55-1.02) mg/dL Est Cr Clr Drug Dosing 81.97 mL/min Estimated GFR (MDRD) > 60 (>60) mL/min BUN/Creatinine Ratio 16.3 (14-18) Glucose 84 (70-99) mg/dL Calcium 8.8 (8.5-10.1) mg/dL Magnesium (1.8-2.4) mg/dL Total Bilirubin 0.5 (0.2-1.0) mg/dL GGT (5-55) U/L AST 719 H (15-37) U/L ALT 485 H (14-59) U/L Alkaline Phosphatase 171 H (46-116) U/L Troponin I < 0.017 (0.00-0.056) ng/mL Total Protein 7.7 (6.4-8.2) g/dl Albumin 3.8 (3.4-5.0) g/dl Globulin 3.9 gm/dL Albumin/Globulin Ratio 1.0 (1-2) Lipase 263 (73-393) U/L 06/15/21 Range/Units 19:35 WBC (3.98-10.04) K/mm3 RBC (3.98-5.22) M/mm3 Hgb (11.2-15.7) gm/dl Hct (34.1-44.9) % MCV (79.4-94.8) fl MCH (25.6-32.2) pg MCHC (32.2-35.5) g/dl RDW Std Deviation (36.4-46.3) fL Plt Count (182-369) K/mm3 MPV (9.4-12.3) fl Neut % (Auto) (34.0-71.1) % Lymph % (Auto) (19.3-51.7) % [place] % (Auto) (4.7-12.5) % Eos % (Auto) (0.7-5.8) Baso % (Auto) (0.1-1.2) % Neut # (Auto) (1.56-6.13) K/mm3 Lymph # (Auto) (1.18-3.74) K/mm3 [place] # (Auto) (0.24-0.36) K/mm3 Eos # (Auto) (0.04-0.36) K/mm3 Baso # (Auto) (0.01-0.08) K/mm3 Sodium (136-145) mEq/L Potassium (3.5-5.1) mEq/L Chloride (98-107) mEq/L Carbon Dioxide (21-32) mEq/L Anion Gap (5-15) BUN (7-18) mg/dL Creatinine (0.55-1.02) mg/dL Est Cr Clr Drug Dosing mL/min Estimated GFR (MDRD) (>60) mL/min BUN/Creatinine Ratio (14-18) Glucose (70-99) mg/dL Calcium (8.5-10.1) mg/dL Magnesium 2.2 (1.8-2.4) mg/dL Total Bilirubin (0.2-1.0) mg/dL GGT 216 H (5-55) U/L AST (15-37) U/L ALT (14-59) U/L Alkaline Phosphatase (46-116) U/L Troponin I (0.00-0.056) ng/mL Total Protein (6.4-8.2) g/dl Albumin (3.4-5.0) g/dl Globulin gm/dL Albumin/Globulin Ratio (1-2) Lipase (73-393) U/L Meds: Medications Generic Name Dose Route Start Last Admin Trade Name Freq PRN Reason Stop Dose Admin Sodium Chloride 1,000 mls @ 999 mls/hr 06/15/21 20:52 06/15/21 21:28 Normal Saline IV 06/15/21 21:52 999 mls/hr ONETIME ONE Administration Discontinued Medications Generic Name Dose Route Start Last Admin Trade Name Freq PRN Reason Stop Dose Admin Ketorolac Tromethamine 30 mg 06/15/21 20:52 06/15/21 21:28 Ketorolac 30 Mg/Ml Sdv IVPUSH 06/15/21 20:53 30 mg ONETIME ONE Administration Promethazine HCl 25 mg 06/15/21 20:39 06/15/21 20:50 Promethazine 25 Mg Tab PO 06/15/21 20:40 25 mg NOW STA Administration - Re-Assessments/Exams Free Text/Narrative Re-Assessment/Exam: 06/15/21 21:52 Hematology reveals a WBC of 5.13, hemoglobin 15.1, hematocrit 45.4, platelet count 354 Chemistry reveals a sodium of 138, potassium 4.0, carbon dioxide 28, anion gap 11.0, BUN 13, creatinine 0.8, glucose 84, magnesium 2.2, total bilirubin 0.5, GGT 216, AST 719, ALT 45, alk phos 171, troponin less than 0.017, lipase 263 Radiologist impression ultrasound of the abdomen impression: 1. Multiple small layering gallstones which is an interval change from previous ultrasound study. No gallbladder wall thickening or biliary duct dilation is seen. 2. Incompletely seen pancreas with visualized portions appear normal. 3. No additional abnormality is identified on right upper quadrant abdominal ultrasound. I did discuss this case with the surgeon on-call, Dr. Dailey, and he states that he believes the patient can be discharged from the emergency department and he will see her in clinic on or Monday of this week. I did discuss this plan with the patient and she is agreeable to this. She states that her pain is almost gone after receiving IV Toradol and Phenergan for nausea. She will be discharged home with a prescription for some [place]'s and Phenergan for the nausea. Departure - Departure Time of Disposition: 21:55 Disposition: Home, Self-Care 01 Condition: Good Clinical Impression: Cholelithiasis Qualifiers: Cholelithiasis location: gallbladder Cholecystitis presence: without cholecystitis Biliary obstruction: without biliary obstruction Qualified Code(s): K80.20 - Calculus of gallbladder without cholecystitis without obstruction - Discharge Information Instructions: Cholelithiasis, [id number] Referrals: Huma Mulligan DIRECTOR REPORT [Primary Care Provider] - Forms: ED Department Discharge, ED Return to Work/School Form Additional Instructions: You were seen in the emergency department with complaints of upper abdominal pain. Labs were completed which do show that your liver enzymes are elevated. Ultrasound of the abdomen shows that you do have gallstones in your gallbladder however there is no thickening of the gallbladder wall or dilation of the biliary duct. While you are in the emergency department you did receive IV fluids, Toradol and Phenergan for nausea. This all did seem to help. I did discuss your case with the surgeon on-call, Dr. Dailey, and he does not feel that this is a surgical emergency at this time. He states that he will see you at the clinic on or Monday of this week. I have sent a prescription for some [place]'s which is a narcotic pain medication. You can take 1 tab every 6 hours as needed for more severe pain. I have also sent a prescription for Phenergan. You may take this every 6-8 hours as needed for nausea and vomiting. Just be aware that both these medications can cause drowsiness so you cannot drive or operate any machinery while taking these. Call [place] [facility] first thing in the morning to schedule your appointment with Dr. Dailey. Sepsis Event Note (ED) - Focused Exam Vital Signs: Vital Signs Temp Pulse Resp BP Pulse Ox 06/15/21 19:01 97.2 F 86 18 137/99 H 99 - My Orders Last 24 Hours: My Active Orders 06/15/21 20:52 Sodium Chloride 0.9% [Normal Saline] 1,000 ml IV ONETIME - Assessment/Plan Last 24 Hours: My Active Orders 06/15/21 20:52 Sodium Chloride 0.9% [Normal Saline] 1,000 ml IV ONETIME
--- NOTE | 2021-06-15 20:20 | CR ---
Chest: Frontal view of the chest was obtained. Comparison: Prior chest x-ray of 09/29/13. Heart size and mediastinum are within normal limits. Lungs are clear with no acute parenchymal change. Bony structures show nothing acute. Impression: 1. Nothing acute is seen on frontal chest x-ray. Diagnostic code #1
[2021-06-15] MEDS ORDERED: Promethazine 25 MG Tab PO STA (20:39)
--- NOTE | 2021-06-15 20:45 | US ---
Limited abdominal ultrasound: Multiple real-time images were obtained of the upper right abdomen. Comparison: Prior CT abdomen and pelvis exam of 01/19/18 as well as prior limited abdominal ultrasound study of 01/19/18. Findings: Liver shows no focal abnormality. Right kidney shows no hydronephrosis or mass. Right kidney has a length of 11.1 cm. Gallbladder shows multiple small gallstones. No gallbladder wall thickening or biliary duct dilatation is seen. Proximal aorta shows no aneurysm. Pancreas is mostly obscured. Visualized portions of the pancreas are within normal limits. Inferior vena cava is patent. Main portal vein shows normal hepatopedal flow. Impression: 1. Multiple small layering gallstones which is an interval change from previous ultrasound study. No gallbladder wall thickening or biliary duct dilatation is seen. 2. Incompletely seen pancreas with visualized portions appearing normal. 3. No additional abnormality is identified in right upper quadrant abdominal ultrasound. Diagnostic code #3
[2021-06-15] MEDS ORDERED: Sodium Chloride 0.9% 1,000 ML IV ONE (20:52)
[2021-06-15] MEDS ORDERED: Ketorolac 30 MG/ML SDV IVPUSH ONE (20:52)
== END 2021-06-15 22:16 | disposition home or self-care (01) ==
LOC: JD.ED 18:14
DX: K80.20 Calculus of gallbladder without cholecystitis without obstruction (principal); E66.9 Obesity, unspecified; Z88.5 Allergy status to narcotic agent; Z88.8 Allergy status to other drugs, medicaments and biological substances; Z72.0 Tobacco use; Z68.30 Body mass index [BMI] 30.0-30.9, adult; Z79.899 Other long term (current) drug therapy; Z20.822 Contact with and (suspected) exposure to COVID-19
CPT/HCPCS: 36415; 71045; 76705; 80053; 82977; 83690; 83735; 84484; 85025; 93005; 96374; 99284; J1885; J7030; J8597; 93010

== ENCOUNTER 2021-07-05 02:03 | Emergency (ER) | payer OTHER ==
--- NOTE | 2021-07-05 02:20 | EDM.PDOC ---
ED HPI GENERAL MEDICAL PROBLEM - General Chief Complaint: Abdominal Pain Stated Complaint: GALLBLADDER PAIN Time Seen by Provider: 07/05/21 02:20 - History of Present Illness INITIAL COMMENTS - FREE TEXT/NARRATIVE: 36-year-old female presents the emergency room with a gallbladder attack. Little over a year ago the patient had a gastric sleeve placed loss about 120 pounds and was informed she may have gallbladder problems. Couple weeks ago she did and she was diagnosed with gallstones, which was an interval change from her last study and ultimately had cholelithiasis without cholecystitis or obstruction. Patient had further work-up and is scheduled for cholecystectomy in 2 days. The patient ate some bland crockpot chicken around 8:00 this evening about 2 hours after this she developed fairly significant right upper quadrant discomfort. She has had significant nausea and vomiting associated with this. The patient has been using ibuprofen as needed for discomfort - Related Data Allergies Allergy/AdvReac Type Severity Reaction Status Date / Time iodine Allergy Intermediate Hives Verified 07/05/21 02:16 morphine AdvReac Mild Headache Verified 07/05/21 02:16 ondansetron [From Zofran] AdvReac Mild Stomach Verified 07/05/21 02:16 Upset Home Meds: Home Meds lamoTRIgine [Lamictal] 200 mg PO BID 06/26/14 [History] Cholecalciferol (Vitamin D3) [Vitamin D3] 5,000 unit PO DAILY 01/19/18 [History] Cyanocobalamin (Vitamin B12) [Vitamin B12] 2,500 mcg PO DAILY 01/19/18 [History] Calcium Citrate 500 mg PO DAILY 09/30/20 [History] FLUoxetine [PROzac] 80 mg PO DAILY 09/30/20 [History] Pedi Multivit No.7/Folic Acid [Flintstones Tab] 1 tab PO DAILY 09/30/20 [History] Rizatriptan Benzoate [Rizatriptan] 10 mg SL DAILY 09/30/20 [History] Magnesium 250 mg PO BEDTIME 06/02/21 [History] atorvaSTATin [Lipitor] 10 mg PO BEDTIME 06/02/21 [History] Hydrocodone/Acetaminophen [HYDROcodone-Acetaminophen 5-325 MG] 1 - 2 each PO Q6H PRN #20 tab 07/05/21 [Rx] Past Medical History - Past Health History Medical/Surgical History: Denies Medical/Surgical History HEENT History: Reports: Impaired Vision Cardiovascular History: Reports: Hypertension Respiratory History: Reports: Sleep Apnea Other Respiratory History: off CPAP since surgery Gastrointestinal History: Reports: Other (See Below) Other Gastrointestinal History: Gastric Sleeve 06/09/20 Genitourinary History: Reports: UTI, Recurrent 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: 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 Musculoskeletal History: Reports: None Neurological History: Reports: Migraines Psychiatric History: Reports: Anxiety, Bipolar, Depression, PTSD Endocrine/Metabolic History: Reports: Obesity/BMI 30+ Hematologic History: Reports: None Immunologic History: Reports: None Oncologic (Cancer) History: Reports: None Dermatologic History: Reports: None - Infectious Disease History Infectious Disease History: Reports: Chicken Pox - Past Surgical History Head Surgeries/Procedures: Reports: None HEENT Surgical History: Reports: Oral Surgery GI Surgical History: Reports: Bariatric Procedure Other GI Surgeries/Procedures: sleeve Female Surgical History: Reports: Hysterectomy Musculoskeletal Surgical History: Reports: None Social & Family History - Family History Family Medical History: No Pertinent Family History Cardiac: Reports: Heart Failure Endocrine/Metabolic: Reports: Diabetes, type II Hematologic: Reports: Anemia - Caffeine Use Caffeine Use: Reports: Tea ED ROS GENERAL - Review of Systems Review Of Systems: See Below Constitutional: Reports: No Symptoms, Weight Gain Respiratory: Reports: No Symptoms Cardiovascular: Reports: No Symptoms GI/Abdominal: Reports: Abdominal Pain, Nausea, Vomiting : Reports: No Symptoms Musculoskeletal: Reports: No Symptoms ED EXAM, GENERAL - Physical Exam Exam: See Below Exam Limited By: No Limitations General Appearance: Alert, Moderate Distress (From the discomfort in the nausea and vomiting) Nose: Normal Inspection, Normal Mucosa Throat/Mouth: Normal Inspection, Normal Lips, Normal Teeth, Normal Gums, Normal Oropharynx, Normal Voice, No Airway Compromise Head: Atraumatic, Normocephalic Neck: Normal Inspection, Supple, Non-Tender, Full Range of Motion Respiratory/Chest: No Respiratory Distress, Lungs Clear, Normal Breath Sounds, No Accessory Muscle Use, Chest Non-Tender Cardiovascular: Normal Peripheral Pulses, Regular Rate, Rhythm, No Edema GI/Abdominal: Normal Bowel Sounds, Soft, Tender (Tender over McBurney's point no rigidity rebound or guarding noted), Other (Obese) Back Exam: Normal Inspection. No: CVA Tenderness (L), CVA Tenderness (R) Neurological: Alert, Oriented, Normal Cognition Course - Vital Signs Last Recorded V/S: Last Vital Signs Temp 36.0 C L 07/05/21 02:38 Pulse 80 07/05/21 02:38 Resp 18 07/05/21 02:38 BP 161/110 H 07/05/21 02:38 Pulse Ox - Orders/Labs/Meds Orders: Active Orders 24 hr Category Date Time Status Abdomen Ltd [US] Stat Exams 07/05/21 04:03 Taken Labs: Laboratory Tests 07/05/21 07/05/21 Range/Units 02:30 02:30 WBC 8.51 (3.98-10.04) K/mm3 RBC 4.94 (3.98-5.22) M/mm3 Hgb 14.2 (11.2-15.7) gm/dl Hct 42.4 (34.1-44.9) % MCV 85.8 (79.4-94.8) fl MCH 28.7 (25.6-32.2) pg MCHC 33.5 (32.2-35.5) g/dl RDW Std Deviation 38.8 (36.4-46.3) fL Plt Count 315 (182-369) K/mm3 MPV 9.2 L (9.4-12.3) fl Neutrophils % (Manual) 75 H (40-60) % Band Neutrophils % 0 (0-10) % Lymphocytes % (Manual) 20 (20-40) % Atypical Lymphs % 0 % Monocytes % (Manual) 5 (2-10) % Eosinophils % (Manual) 0 L (0.7-5.8) % Basophils % (Manual) 0 L (0.1-1.2) Platelet Estimate Adequate RBC Morph Comment Normal Sodium 140 (136-145) mEq/L Potassium 3.5 (3.5-5.1) mEq/L Chloride 105 (98-107) mEq/L Carbon Dioxide 25 (21-32) mEq/L Anion Gap 13.5 (5-15) BUN 14 (7-18) mg/dL Creatinine 0.7 (0.55-1.02) mg/dL Est Cr Clr Drug Dosing 93.68 mL/min Estimated GFR (MDRD) > 60 (>60) mL/min BUN/Creatinine Ratio 20.0 H (14-18) Glucose 116 H (70-99) mg/dL Calcium 8.5 (8.5-10.1) mg/dL Total Bilirubin 0.6 (0.2-1.0) mg/dL Direct Bilirubin 0.40 H (0.0-0.2) mg/dl AST 404 H (15-37) U/L ALT 238 H (14-59) U/L Alkaline Phosphatase 163 H (46-116) U/L Total Protein 7.3 (6.4-8.2) g/dl Albumin 3.6 (3.4-5.0) g/dl Globulin 3.7 gm/dL Albumin/Globulin Ratio 1.0 (1-2) Lipase 249 (73-393) U/L Meds: Medications Discontinued Medications Generic Name Dose Route Start Last Admin Trade Name Rayq PRN Reason Stop Dose Admin Lactated Ringer's 1,000 mls @ 999 mls/hr 07/05/21 02:46 07/05/21 03:20 Ringers, Lactated IV 07/05/21 03:46 999 mls/hr .BOLUS ONE Administration Ketorolac Tromethamine 30 mg 07/05/21 02:46 07/05/21 03:15 Ketorolac 30 Mg/Ml Sdv IVPUSH 07/05/21 02:47 30 mg ONETIME ONE Administration Metoclopramide HCl 5 mg 07/05/21 02:48 07/05/21 03:21 Metoclopramide 10 Mg/2 Ml Sdv IVPUSH 07/05/21 02:49 5 mg ONETIME ONE Administration Ondansetron HCl 4 mg 07/05/21 02:46 07/05/21 03:23 Ondansetron 4 Mg/2 Ml Sdv IVPUSH 07/05/21 02:47 Not Given ONETIME ONE - Re-Assessments/Exams Free Text/Narrative Re-Assessment/Exam: 07/05/21 06:51 Patient's lab works were reviewed and it was very concerning for elevated transaminitis elevated bilirubin. I went ahead and repeated the gallbladder ultrasound which shows a fatty liver multiple tiny mobile gallstones common bile duct measures 4 mm. Initially the patient was treated with Zofran received some fluids and received 30 mg of Toradol IV. She had very good relief of her discomfort and this is carried her through her emergency room stay. Case was reviewed with Dr. Dailey her surgeon. He believes it is okay to go ahead and discharge her home anticipating surgery tomorrow. I will discharge the patient with [place] 5/325 #20. This will be sent electronically to the [place] pharmacy [facility]. Departure - Departure Time of Disposition: 07:00 Disposition: Home, Self-Care 01 Clinical Impression: Cholelithiasis Qualifiers: Cholelithiasis location: gallbladder Cholecystitis presence: without cholecystitis Biliary obstruction: without biliary obstruction Qualified Code(s): K80.20 - Calculus of gallbladder without cholecystitis without obstruction - Discharge Information Referrals: Huma Mulligan PADDER [Primary Care Provider] - Forms: ED Department Discharge Additional Instructions: Return to the emergency room with any questions problems or worsening symptoms. You are scheduled for surgery tomorrow. Follow your routine surgical instructions. I sent a electronic prescription to the [place] pharmacy in the [facility] grocery store. Use 1 or 2 every 6 hours as needed for pain. Sepsis Event Note (ED) - Focused Exam Vital Signs: Vital Signs Temp Pulse Resp BP 07/05/21 02:38 36.0 C L 80 18 161/110 H - My Orders Last 24 Hours: My Active Orders 07/05/21 04:03 Abdomen Flightfox [US] Stat - Assessment/Plan Last 24 Hours: My Active Orders 07/05/21 04:03 Abdomen Flightfox [US] Stat
[2021-07-05 02:40] VITALS: BP 161/110; PULSE 80
[2021-07-05] MEDS ORDERED: Ketorolac 30 MG/ML SDV IVPUSH ONE (02:46)
[2021-07-05] MEDS ORDERED: Lactated Ringers 1,000 ML IV ONE (02:46)
[2021-07-05] MEDS ORDERED: Ondansetron 4 MG/2 ML SDV IVPUSH ONE (02:46)
[2021-07-05] MEDS ORDERED: Metoclopramide 10 MG/2 ML SDV IVPUSH ONE (02:48)
--- NOTE | 2021-07-05 08:03 | US ---
Limited abdominal ultrasound: Multiple real-time images were obtained. Comparison: Prior limited abdominal ultrasound of 01/19/18. Findings: Liver is possibly fatty infiltrated but shows no focal abnormality. Gallbladder shows shadowing consistent with multiple small layering gallstones. No gallbladder wall thickening is seen. No biliary duct dilatation is seen. Right kidney shows no hydronephrosis or mass. Right kidney has a length of 11.7 cm. Proximal aorta shows no aneurysm. Pancreas shows no discrete abnormality. Inferior vena cava is patent. Main portal vein shows normal hepatopedal flow. Impression: 1. Multiple layering gallstones with shadowing. No gallbladder wall thickening or biliary duct dilatation is seen. 2. Possible fatty infiltration within the liver. 3. No additional abnormality is appreciated. Diagnostic code #3 I agree with preliminary report from [facility], finalized on 07/05/21, 7:25 AM CDT, code 1
== END 2021-07-05 07:30 | disposition home or self-care (01) ==
LOC: JD.ED 02:03
DX: K80.20 Calculus of gallbladder without cholecystitis without obstruction (principal); I10 Essential (primary) hypertension; E66.9 Obesity, unspecified; Z88.5 Allergy status to narcotic agent; Z88.8 Allergy status to other drugs, medicaments and biological substances; Z79.899 Other long term (current) drug therapy; Z68.31 Body mass index [BMI] 31.0-31.9, adult
CPT/HCPCS: 36415; 76705; 80053; 82248; 83690; 85007; 85027; 96374; 96375; 99284; J1885; J2765; J7120

== ENCOUNTER 2022-05-25 10:13 | Emergency (ER) | payer OTHER ==
[2022-05-25 11:32] VITALS: BP 127/107; PULSE 81
[2022-05-25] MEDS ORDERED: Sodium Chloride 0.9% 10 ML Syringe FLUSH PRN (11:52)
[2022-05-25] MEDS ORDERED: Ondansetron 4 MG/2 ML SDV IVPUSH ONE (11:52)
[2022-05-25] MEDS ORDERED: Sodium Chloride 0.9% 1,000 ML IV ONE (11:52)
[2022-05-25] MEDS ORDERED: diphenhydrAMINE 50 MG/ML SDV IVPUSH ONE (12:20)
[2022-05-25] MEDS ORDERED: Potassium Chloride 20 MEQ Tab.ER PO ONE (14:02)
== END 2022-05-25 14:30 | disposition home or self-care (01) ==
LOC: JD.ED 10:13
DX: B34.9 Viral infection, unspecified (principal); E87.6 Hypokalemia; I10 Essential (primary) hypertension; E66.9 Obesity, unspecified; Z68.31 Body mass index [BMI] 31.0-31.9, adult; Z88.5 Allergy status to narcotic agent; Z88.8 Allergy status to other drugs, medicaments and biological substances; Z91.041 Radiographic dye allergy status; Z86.16 Personal history of COVID-19; Z20.822 Contact with and (suspected) exposure to COVID-19
CPT/HCPCS: 36415; 80053; 81001; 83735; 85025; 86140; 87635; 96361; 96374; 96375; 99284; A9270; J1200; J2405; J3490; J7030; U0002